=== PATIENT | male | born 1995 | race Caucasian/White ===

== ENCOUNTER 2017-07-03 03:57 | Emergency (ER) | payer SELFPAY ==
[~2017-07-03] VITALS: Ht 170.2 cm; Wt 56.4 kg
[2017-07-03 03:59] VITALS: BP 107/77
[2017-07-03] MEDS ORDERED: ONDANSETRON ODT 4 MG ONE (04:15)
[2017-07-03] MEDS ORDERED: ONDANSETRON ODT 4 MG PO ONE (04:30)
== END 2017-07-03 06:03 | disposition left against medical advice (07) ==
LOC: ED 05:00
DX: F10.129 Alcohol abuse with intoxication, unspecified (principal); Z53.21 Procedure and treatment not carried out due to patient leaving prior to being seen by health care provider
CPT/HCPCS: Q0162